=== PATIENT | female | born 1990 | race African-American/Black ===

== ENCOUNTER 2022-09-27 17:34 | Inpatient (IN) | payer OTHER ==
[~2022-09-27] VITALS: Ht 167.6 cm; Wt 80.0 kg
[2022-09-27 18:48] LABS: Basophils # (auto) 0.2 10 ^3/uL (0-0.2); Nucleated Red Blood Cells % 0.6 %; White Blood Cell 5.5 10^3/uL (4.4-10.8)
[2022-09-27 18:50] LABS: Basophils % (auto) 2.8 % (0.0-2.0); Eosinophils # (auto) 0.5 10 ^3/uL (0-0.8); Eosinophils % (auto) 9.7 % (0.0-7.0); Hematocrit 12.6 % (36.0-46.0); Lymphocytes # (auto) 2.2 10 ^3/uL (0.4-5.4); Lymphocytes % (auto) 39.3 % (10.0-50.0); Mean Corpuscular Hemoglobin 16.5 pg (28.0-32.0); Mean Corpuscular Hgb Conc. 27.1 g/dL (32.0-36.0); Monocytes # (auto) 0.4 10 ^3/uL (0-1.3); Neutrophils # (auto) 2.2 10 ^3/uL (1.6-8.6); Neutrophils % (auto) 40.2 % (37.0-80.0); Red Blood Cells 2.06 10^6/uL (4.0-5.20)
[2022-09-27 18:54] LABS: Albumin 3.3 g/dL (3.4-5.0); Calcium 8.1 mg/dL (8.5-10.1); Potassium 3.7 mmol/L (3.5-5.1)
[2022-09-27 18:58] LABS: BUN/Creatinine Ratio 6.7 (10.0-20.0); Bilirubin, Total 0.2 mg/dL (0.2-1.0); Total Protein 7.4 g/dL (6.4-8.2)
[2022-09-27 19:04] LABS: Red Cell Distribution Width 32.7 % (11.8-14.3)
[2022-09-27 19:09] LABS: Hemoglobin 3.4 g/dL (12.2-16.2)
[2022-09-27 19:10] LABS: INR 1.04 (0.9-1.15); Partial Thromboplastin Time 24.7 sec (24.6-33.4)
[2022-09-27 19:31] LABS: Urine Bacteria FEW /hpf (None Seen); Urine Blood Negative /uL (Negative); Urine Hyaline Cast FEW /lpf (0 - 2); Urine Mucus FEW (None Seen); Urine WBC 5 /hpf (0 - 5)
[2022-09-27 21:15] LABS: % Iron Saturation 1.2 % (15-50)
[2022-09-27 21:25] LABS: Ferritin 1.6 ng/mL (10-322)
[2022-09-27 21:27] LABS: Folate (Folic Acid) 10.09 ng/mL (5.38-24)
[2022-09-27 21:28] VITALS: BP 93/47
[2022-09-27 21:46] VITALS: BP 101/51
[2022-09-27] MEDS ORDERED: ACETAMINOPHEN 325 MG TAB PO ONE (22:45)
[2022-09-27] MEDS ORDERED: AZTREONAM 1GM INJ 0.5 GM in D5W 5% 50 ML IV SCH (23:00)
[2022-09-27] MEDS ORDERED: ONDANSETRON HCL 4 MG/2 ML VIAL IV PRN (23:15)
[2022-09-27] MEDS ORDERED: NITROGLYCERIN 0.4 MG SL TAB SL PRN (23:15)
[2022-09-27] MEDS ORDERED: MORPHINE SULFATE INJ 2 MG/ml SYRG IV PRN (23:15)
[2022-09-27] MEDS ORDERED: PANTOPRAZOLE 40 MG/10 ML VIAL INJ IV ONE (23:15)
[2022-09-27 23:34] VITALS: BP 94/54
[2022-09-27 23:59] VITALS: BP 93/50
[2022-09-28] VITALS (24 sets, daily range): BP systolic 90–114; BP diastolic 40–74
[2022-09-28] MEDS ORDERED: ACET-1156 PO (02:13)
[2022-09-28] MEDS ORDERED: LACTATED RINGER'S 1,000 ML IV SCH (04:00)
[2022-09-28] MEDS ORDERED: AZTREONAM 1GM INJ 1 GM in D5W 5% 50 ML IV SCH (06:00)
[2022-09-28 07:04] LABS: Alcohol, Urine < 3.0 mg/dL (0-10); Amphetamine Screen, Urine POSITIVE (NEGATIVE); Barbiturate Scree,Urine NEGATIVE (NEGATIVE); Benzodiazephine Screen, Urine NEGATIVE (NEGATIVE); Cannabinoid Screen, Urine POSITIVE (NEGATIVE); Cocaine Screen, Urine NEGATIVE (NEGATIVE); Phencyclidine Screen, Urine NEGATIVE (NEGATIVE)
[2022-09-28 07:12] LABS: Opiate Scree,Urine NEGATIVE (NEGATIVE)
[2022-09-28] MEDS: FERROUS SULFATE 325mg EC TAB PO SCH ×2 (08:10→12:04)
[2022-09-28 09:07] LABS: Mean Corpuscular Volume 72.3 fL (80.0-100.0); White Blood Cell 5.4 10^3/uL (4.4-10.8)
[2022-09-28 09:10] LABS: Hematocrit 21.8 % (36.0-46.0); Mean Corpuscular Hemoglobin 22.6 pg (28.0-32.0); Mean Corpuscular Hgb Conc. 31.3 g/dL (32.0-36.0); Red Blood Cells 3.02 10^6/uL (4.0-5.20)
[2022-09-28 09:13] LABS: Red Cell Distribution Width 38.8 % (11.8-14.3)
[2022-09-28 09:16] LABS: Hemoglobin 6.8 g/dL (12.2-16.2)
[2022-09-28 09:18] LABS: Basophils % (manual) 0 (0.0-2.0); Blast Cells 0; Metamyelocytes % 0; Myelocytes % 0; Promyelocytes % 0; Reactive Lymphocytes 0
[2022-09-28 09:23] LABS: Potassium 3.8 mmol/L (3.5-5.1)
[2022-09-28 09:35] LABS: Albumin 3.3 g/dL (3.4-5.0); BUN/Creatinine Ratio 8.5 (10.0-20.0); Bilirubin, Total 0.7 mg/dL (0.2-1.0); Calcium 8.3 mg/dL (8.5-10.1); Total Protein 7.6 g/dL (6.4-8.2)
[2022-09-28 09:36] LABS: Band Neutrophils % (manual) 7; Eosinophils % (manual) 18 (0-7); Lymphocytes % (manual) 34 (10.0-50.0); Monocytes % (manual) 7 (0-12)
[2022-09-28] MEDS ORDERED: PANTOPRAZOLE 40 MG/10 ML VIAL INJ IV SCH (10:00)
[2022-09-28] MEDS ORDERED: NICOTINE 14 MG/24HR TOPICAL PATCH TD SCH (10:00)
[2022-09-28] MEDS: LACTATED RINGER'S 1,000 ML IV SCH ×2 (12:00→17:13)
[2022-09-28] MEDS ORDERED: IRON SUCROSE COMPLEX 200 MG in SODIUM CHL 0.9% 100 ML IV ONE (13:45)
[2022-09-29] MEDS ORDERED: IRON SUCROSE COMPLEX 200 MG in SODIUM CHL 0.9% 100 ML IV SCH (12:00)
== END 2022-09-28 19:12 | disposition left against medical advice (07) | DRG 532 ==
LOC: ER 17:34 → TELE 23:14 → DOU IN ICU 09-28 01:22 → TELE-CENTR 09-28 16:39
PROVIDERS: ADMIT Registered Nurse; ATTEND Internal Medicine
PROC: 30233N1 Transfusion of Nonautologous Red Blood Cells into Peripheral Vein, Percutaneous Approach (ICD-10-PCS; principal; 2022-09-27)
DX: D25.9 Leiomyoma of uterus, unspecified (principal); N17.0 Acute kidney failure with tubular necrosis; E44.1 Mild protein-calorie malnutrition; D62 Acute posthemorrhagic anemia; N39.0 Urinary tract infection, site not specified; N93.9 Abnormal uterine and vaginal bleeding, unspecified; E66.9 Obesity, unspecified; Z53.29 Procedure and treatment not carried out because of patient's decision for other reasons; Z71.6 Tobacco abuse counseling; Z88.0 Allergy status to penicillin; Z90.49 Acquired absence of other specified parts of digestive tract; Z68.28 Body mass index [BMI] 28.0-28.9, adult; Z72.0 Tobacco use
CPT/HCPCS: 36415; 76856; 80053; 80061; 80307; 81001; 82607; 82728; 82746; 83540; 83550; 84443; 85007; 85025; 85027; 85045; 85610; 85730; 86850; 86900; 86901; 86920; 87040; 87081; 87086; 96374; C9113; G0378; J1756; J7060